=== PATIENT | male | born 1975 | race Caucasian/White ===

== ENCOUNTER 2017-01-10 07:59 | Emergency (ER) | payer BC ==
[2017-01-10] MEDS ORDERED: Bupivacaine 0.5% 10 ML SDV INJECT ONE (08:16)
[2017-01-10] MEDS ORDERED: Lidocaine 1% 20 ML MDV INJECT ONE (08:16)
--- NOTE | 2017-01-10 08:17 | EDM.PDOC ---
ED HPI GENERAL MEDICAL PROBLEM - General Time Seen by Provider: 01/10/17 10:02 Source of Information: Reports: Patient History Limitations: Reports: No limitations - History of Present Illness INITIAL COMMENTS - FREE TEXT/NARRATIVE: History of present illness: [] Patient smashed his left thumb prior to arrival he denies any numbness or tingling or any other injuries. He has a laceration with no active bleeding Review of systems: As per history of present illness and below otherwise all systems reviewed and negative. Past medical history: As per history of present illness and as reviewed below otherwise noncontributory. Surgical history: As per history of present illness and as reviewed below otherwise noncontributory. Social history: No reported history of drug or alcohol abuse. Family history: As per history of present illness and as reviewed below otherwise noncontributory. Physical exam: General: Well developed, well nourished in NAD HEENT: Atraumatic, normocephalic, pupils reactive, negative for conjunctival pallor or scleral icterus, mucous membranes moist, throat clear, neck supple, nontender, trachea midline. Lungs: Clear to auscultation, breath sounds equal bilaterally, chest nontender. Heart: S1S2, regular, negative for clicks, rubs, or JVD. Abdomen: Soft, nondistended, nontender. Negative for masses or hepatosplenomegaly. Negative for costovertebral tenderness. Pelvis: Stable nontender. Genitourinary: Deferred. Rectal: Deferred. Extremities: Laceration left distal,, negative for cords or calf pain. Neurovascular unremarkable. Neuro: Awake, alert, oriented. Cranial nerves II through XII unremarkable. Cerebellum unremarkable. Motor and sensory unremarkable throughout. Exam nonfocal. Diagnostics: [] X-ray showing tuft fracture Therapeutics: [] Laceration was sutured after digital block given Impression: [] Open tuft fracture left thumb Plan: [] Keflex ice Motrin for pain followup with Dr. Irving in plastics clinic Definitive disposition and diagnosis as appropriate pending reevaluation and review of above. Right 1-Thumb Pain Score (Numeric/FACES): 3 - Related Data Allergies Allergy/AdvReac Type Severity Reaction Status Date / Time No Known Allergies Allergy Verified 01/10/17 08:13 Home Meds: Home Meds Cephalexin [Keflex] 500 mg PO Q6HR #28 cap 01/10/17 [Rx] Lisinopril [Prinivil] 20 mg PO DAILY 01/10/17 [History] Past Medical History - Past Health History Medical/Surgical History: Denies Medical/Surgical History Cardiovascular History: Reports: Hypertension - Infectious Disease History Infectious Disease History: Reports: Chicken pox, Measles, Mumps Social & Family History - Family History Family Medical History: Noncontributory - Tobacco Use Smoking Status *Q: Never Smoker - Caffeine Use Caffeine Use: Reports: None - Recreational Drug Use Recreational Drug Use: No ED ROS GENERAL - Review of Systems Review Of Systems: See Below (See history of present illness) ED EXAM, SKIN/RASH Exam: See Below (See history of present illness) ED SKIN PROCEDURES - Laceration/Wound Repair Left Finger Lac/wound length in cm: 1 Appearance: superficial Distal NVT: neuro & vascular intact Anesthetic type: digital Local anesthesia - Lidocaine (Xylocaine): 1% plain Local anesthesia - Bupivicaine (Marcaine): 0.5% plain Local anesthetic volume: 3cc Skin prep: chlorhexidine (hibiciens), saline Closed with: sutures Repaired with: vicryl Drain placement: No Sterile dressing applied: nurse Tetanus status addressed: Yes Complications: No Course - Vital Signs Last Recorded V/S: Last Vital Signs Temp 36.7 C 01/10/17 08:11 Pulse 80 01/10/17 08:11 Resp 18 01/10/17 08:11 BP 141/86 H 01/10/17 08:11 Pulse Ox 96 01/10/17 08:11 - Orders/Labs/Meds Meds: Medications Discontinued Medications Generic Name Dose Route Start Last Admin Trade Name Cornelio PRN Reason Stop Dose Admin Bacitracin 1 dose 01/10/17 10:39 01/10/17 10:49 Bacitracin Oint 1 Gm TOP 01/10/17 10:40 1 dose ONETIME ONE Administration Bupivacaine HCl 10 ml 01/10/17 08:16 01/10/17 08:30 Sensorcaine-Mpf 0.5% INJECT 01/10/17 08:17 8 ml ONETIME ONE Administration Cefazolin Sodium 1 gm 01/10/17 09:55 01/10/17 10:55 Ancef IM 01/10/17 09:56 1 gm ONETIME ONE Administration Lidocaine HCl 20 ml 01/10/17 08:16 01/10/17 08:30 Xylocaine 1% INJECT 01/10/17 08:17 10 ml ONETIME ONE Administration Sterile Water 2.1 ml 01/10/17 10:40 01/10/17 10:55 Sterile Water For Injection INJECT 01/10/17 10:41 2.5 ml NOW STA Administration Departure - Departure Time of Disposition: 09:59 Disposition: Home, Self-Care 01 Condition: good Clinical Impression: Fracture of thumb, left, open Qualifiers: Encounter type: initial encounter Phalanx: distal Fracture alignment: nondisplaced Qualified Code(s): S62.525B - Nondisplaced fracture of distal phalanx of left thumb, initial encounter for open fracture - Discharge Information Prescriptions: Cephalexin [Keflex] 500 mg PO Q6HR #28 cap Instructions: Thumb Fracture Referrals: PCP,None [Primary Care Provider] - Forms: ED Department Discharge Additional Instructions: The following information is given to patients seen in the emergency department who are being discharged to home. This information is to outline your options for follow-up care. We provide all patients seen in our emergency department with a follow-up referral. The need for follow-up, as well as the timing and circumstances, are variable depending upon the specifics of your emergency department visit. If you don't have a primary care physician on staff, we will provide you with a referral. We always advise you to contact your personal physician following an emergency department visit to inform them of the circumstance of the visit and for follow-up with them and/or the need for any referrals to a consulting specialist. The emergency department will also refer you to a specialist when appropriate. This referral assures that you have the opportunity for follow-up care with a specialist. All of these measure are taken in an effort to provide you with optimal care, which includes your follow-up. Under all circumstances we always encourage you to contact your private physician who remains a resource for coordinating your care. When calling for follow-up care, please make the office aware that this follow-up is from your recent emergency room visit. If for any reason you are refused follow-up, please contact the [facility] Emergency Department at and asked to speak to the emergency department charge nurse. Keflex Motrin for pain ice and elevate [facility] Specialty Care - Plastic Surgery Professional Building [address] [place] [address], [address] [place] [address] ED HPI Skin/Rash - General Chief Complaint: Laceration Stated Complaint: INJURY TO THUMB Time Seen by Provider: 01/10/17 08:09 Source: Reports: Patient History Limitations: Reports: No limitations - Related Data Allergies Allergy/AdvReac Type Severity Reaction Status Date / Time No Known Allergies Allergy Verified 01/10/17 08:13 Home Meds: Ambulatory Orders Medication Instructions Recorded Confirmed Cephalexin [Keflex] 500 mg PO Q6HR #28 cap 01/10/17 Lisinopril [Prinivil] 20 mg PO DAILY 01/10/17 01/10/17 Departure - Departure Time of Disposition: 10:58 Disposition: Home, Self-Care 01 Clinical Impression: Fracture of thumb, left, open Qualifiers: Encounter type: initial encounter Phalanx: distal Fracture alignment: nondisplaced Qualified Code(s): S62.525B - Nondisplaced fracture of distal phalanx of left thumb, initial encounter for open fracture Prescriptions: Cephalexin [Keflex] 500 mg PO Q6HR #28 cap Instructions: Thumb Fracture Referrals: PCP,None [Primary Care Provider] - Forms: ED Department Discharge Additional Instructions: The following information is given to patients seen in the emergency department who are being discharged to home. This information is to outline your options for follow-up care. We provide all patients seen in our emergency department with a follow-up referral. The need for follow-up, as well as the timing and circumstances, are variable depending upon the specifics of your emergency department visit. If you don't have a primary care physician on staff, we will provide you with a referral. We always advise you to contact your personal physician following an emergency department visit to inform them of the circumstance of the visit and for follow-up with them and/or the need for any referrals to a consulting specialist. The emergency department will also refer you to a specialist when appropriate. This referral assures that you have the opportunity for follow-up care with a specialist. All of these measure are taken in an effort to provide you with optimal care, which includes your follow-up. Under all circumstances we always encourage you to contact your private physician who remains a resource for coordinating your care. When calling for follow-up care, please make the office aware that this follow-up is from your recent emergency room visit. If for any reason you are refused follow-up, please contact the [facility] Emergency Department at and asked to speak to the emergency department charge nurse. Sylvie Rosado for pain ice and elevate [facility] Specialty Care - Plastic Surgery Professional Building [address] [place] [address], [address] [place] [address]
[2017-01-10] MEDS ORDERED: ceFAZolin 1 GM Vial IM ONE (09:55)
--- NOTE | 2017-01-10 10:08 | CR ---
EXAMINATION: Right thumb HISTORY: crush COMPARISON: None TECHNIQUE: 3 views FINDINGS/IMPRESSION: There is a mildly comminuted minimally displaced fracture through the tuft of t he distal first phalanx. The remaining osseous structures and joint spaces appear intact. Bone muck miner alization is otherwise normal.
[2017-01-10] MEDS ORDERED: Bacitracin Oint 1 GM U/D Packet TOP ONE (10:39)
[2017-01-10] MEDS ORDERED: Water For Injection, Sterile 20 ML SDV INJECT STA (10:40)
[2017-01-10 11:43] VITALS: BP 156/81
== END 2017-01-10 11:10 | disposition home or self-care (01) ==
LOC: MW.ED 07:59
DX: S62.525B Nondisplaced fracture of distal phalanx of left thumb, initial encounter for open fracture (principal); S61.012A Laceration without foreign body of left thumb without damage to nail, initial encounter; W22.8XXA Striking against or struck by other objects, initial encounter
CPT/HCPCS: 12001; 73140; 96372; 99283; J0690

== ENCOUNTER 2021-08-15 00:32 | Emergency (ER) | payer SELFPAY ==
[2021-08-15 00:48] VITALS: BP 140/93; PULSE 104
--- NOTE | 2021-08-15 00:58 | EDM.PDOC ---
ED HPI GENERAL MEDICAL PROBLEM - General Chief Complaint: Respiratory Problem Stated Complaint: POSSIBLE PNEUMONIA Time Seen by Provider: 08/15/21 00:33 Source of Information: Reports: Patient History Limitations: Reports: No Limitations - History of Present Illness INITIAL COMMENTS - FREE TEXT/NARRATIVE: 46-year-old male with history of hypertension and asthma presents with shortness of breath and cough since '. Yesterday he notes right-sided chest tightness that lasted for seconds. He denies fever, chills, nausea, vomiting, abdominal pain, back pain. He currently denies any chest pain. ROS: A 10-point review of systems, other than pertinent positives and negatives as stated per HPI, is otherwise negative Past medical history: No additional pertinent history Past Surgical history: No additional pertinent history Social history: No additional pertinent history Family history: No additional pertinent history PHYSICAL EXAM General: AOx4, GCS = 15, agitated, routinely cussing at nursing staff and physician, rude to staff. No distress HEENT: dry mucous membrane Neck: supple, no meningismus, no Kernig or Brudzinski Cardiac: S1S2 RRR Respiratory: CTAB, no crackles or rales, no wheezing Abdomen: Soft, nontender, no rebound or guarding, nondistended, no pulsatile mass. Back: nontender Musculoskeletal: NVI distally, no deformity Neuro: No focal deficits - Related Data Allergies Allergy/AdvReac Type Severity Reaction Status Date / Time No Known Allergies Allergy Verified 08/15/21 00:43 Home Meds: Home Meds Lisinopril [Prinivil] 20 mg PO DAILY 01/10/17 [History] Benzonatate 100 mg PO BID #10 capsule 08/15/21 [Rx] Past Medical History - Past Health History Medical/Surgical History: Denies Medical/Surgical History Cardiovascular History: Reports: Hypertension - Infectious Disease History Infectious Disease History: Reports: Chicken Pox, Measles, Mumps Social & Family History - Family History Family Medical History: No Pertinent Family History - Tobacco Use Tobacco Use Status *Q: Unknown Ever Used Tobacco - Caffeine Use Caffeine Use: Reports: Coffee - Recreational Drug Use Recreational Drug Use: No ED ROS GENERAL - Review of Systems Review Of Systems: See Below (see dictation) ED EXAM, GENERAL - Physical Exam Exam: See Below (see dictation) #1 Interpretation EKG Interpretation Comments: Heart rate = 96 bpm, normal sinus rhythm, normal QRS interval, TWi on III and AVF. no STEMI. EKG and rhythm strip interpreted by me at 1255 Course - Vital Signs Last Recorded V/S: Last Vital Signs Temp 97.9 F 08/15/21 00:44 Pulse 104 H 08/15/21 00:44 Resp 18 08/15/21 00:44 BP 140/93 H 08/15/21 00:44 Pulse Ox 96 08/15/21 00:44 - Orders/Labs/Meds Orders: Active Orders 24 hr Category Date Time Status B-TYPE NATRIURETIC PEPTIDE,BNP [CHEM] Stat Lab 08/15/21 01:10 Received Labs: Laboratory Tests 08/15/21 08/15/21 08/15/21 Range/Units 00:40 01:10 01:10 WBC 8.19 (4.0-11.0) K/uL RBC 4.29 L (4.50-5.90) M/uL Hgb 12.8 L (13.0-17.0) g/dL Hct 36.8 L (38.0-50.0) % MCV 85.8 (80.0-98.0) fL MCH 29.8 (27.0-32.0) pg MCHC 34.8 (31.0-37.0) g/dL RDW Std Deviation 39.8 (28.0-62.0) fl RDW Coeff of Bill 13 (11.0-15.0) % Plt Count 456 H (150-400) K/uL MPV 10.70 (7.40-12.00) fL Neut % (Auto) 62.5 (48.0-80.0) % Lymph % (Auto) 20.1 (16.0-40.0) % [place] % (Auto) 15.8 H (0.0-15.0) % Eos % (Auto) 1.0 (0.0-7.0) % Baso % (Auto) 0.6 (0.0-1.5) % Neut # (Auto) 5.1 (1.4-5.7) K/uL Lymph # (Auto) 1.7 (0.6-2.4) K/uL [place] # (Auto) 1.3 H (0.0-0.8) K/uL Eos # (Auto) 0.1 (0.0-0.7) K/uL Baso # (Auto) 0.1 (0.0-0.1) K/uL Nucleated RBC % 0.0 /100WBC Nucleated RBCs # 0 K/uL Sodium 138 (136-148) mmol/L Potassium 4.0 (3.5-5.1) mmol/L Chloride 100 (98-107) mmol/L Carbon Dioxide 30.0 (21.0-32.0) mmol/L BUN 9 (7.0-18.0) mg/dL Creatinine 0.9 (0.8-1.3) mg/dL Est Cr Clr Drug Dosing 114.67 mL/min Estimated GFR (MDRD) > 60.0 ml/min Glucose 130 H (74-106) mg/dL Calcium 8.4 L (8.5-10.1) mg/dL Total Bilirubin 0.5 (0.2-1.0) mg/dL AST 37 (15-37) IU/L ALT 85 H (14-63) IU/L Alkaline Phosphatase 58 (46-116) U/L Troponin I < 0.050 (0.000-0.056) ng/mL Total Protein 7.3 (6.4-8.2) g/dL Albumin 2.7 L (3.4-5.0) g/dL Globulin 4.6 H (2.6-4.0) g/dL Albumin/Globulin Ratio 0.6 L (0.9-1.6) Influenza Type A RNA NEGATIVE (NEGATIVE) Influenza Type B RNA NEGATIVE (NEGATIVE) SARS-CoV-2 RNA (IMELDA) POSITIVE H (NEGATIVE) - Re-Assessments/Exams Free Text/Narrative Re-Assessment/Exam: 08/15/21 01:47 He is currently stable for discharge. I performed a repeat exam and did not appreciate new abnormal findings. Patient exhibits normal vital signs and has a normal gait on road test. I advised the patient to return to the ER for reevaluation if symptoms worsened, including fever, worsening pain, or any other worrisome symptoms. I instructed the patient to follow up with their PCP within 2-3 days. MEDICAL DECISION MAKING: This patient was evaluated during the COVID-19 pandemic where resources and capacity might be affected. I reviewed the patients past medical records, lab and radiographic findings. I discussed the case with the patient. My differential diagnosis included: Covid, ACS, pneumonia. This patient was evaluated for the symptoms described in the history of present illness. He tested positive for Covid. He does not require supplemental oxygen. They were evaluated in the context of the global COVID-19 pandemic, which necessitated consideration that the patient might be at risk for infection with the SARS-CoV-2 virus that causes COVID-19. Institutional protocols and algorithms that pertain to the evaluation of patients at risk for COVID-19 are in a state of rapid change based on information released by regulatory bodies including the CDC and federal and state organizations. These policies and algorithms were followed during the patient's care. I wore full PPE, N95, face shield, gown and gloves throughout my evaluation and care of this patient. I recommended home isolation. given home isolation instructions. The patient is well appearing, not in respiratory distress, not hypoxic, no tachyneia, no retractions. I instructed patient to return immediately for worsening symptoms, sob, chest pain, lightheadedness or other concerns. Patient voiced understanding and questions answered. Given the EKG and clinical history, I do not suspect pericarditis. There is no evidence of pneumothorax or consolidation on CXR, I do not suspect bacterial infection needing antibiotics.. Aortic dissection was considered, however the presenting symptoms were uncharacteristic of aortic dissection. Chest X-ray shows no evidence of mediastinal widening and there are strong, equal and symmetric pulses. Given the current presentation, I do not suspect aortic dissection. He was tested positive for Covid. The patients history, chest X- ray, and exam do not suggest pulmonary edema/congestive heart failure. Pulmonary embolism was considered but felt unlikely. Acute coronary syndrome was considered but there are negative biomarkers, no acute ischemic EKG changes, and the patient has a low HEART score. Based on this, I feel that there is low risk for short-term major adverse cardiac event. I have discussed this with the p atient and reviewed options for inpatient and outpatient management. The patient verbalizes an excellent understanding of the above including presence of small risk of short-term major adverse cardiac event even in the setting of low HEART score, negative cardiac biomarker, and compendium of elements of this presentation. The patient wishes to pursue further workup on as an outpatient. Departure - Departure Time of Disposition: 01:48 Disposition: Home, Self-Care 01 Condition: Good Clinical Impression: COVID-19 - Discharge Information *PRESCRIPTION DRUG MONITORING PROGRAM REVIEWED*: Not Applicable *COPY OF PRESCRIPTION DRUG MONITORING REPORT IN PATIENT PARVIN: Not Applicable Prescriptions: Benzonatate 100 mg PO BID #10 capsule Instructions: COVID-19 Vaccine Information, What You Should Know About COVID-19 to Protect Yourself and Others - CDC, How to Wear and Take Off Your Mask - [facility] (12/03/2020), COVID-19 Frequently Asked Questions, 10 Things You Can Do to Manage Your COVID-19 Symptoms at Home - CDC (03/19/2021) Referrals: PCP,None [Primary Care Provider] - Forms: ED Department Discharge Additional Instructions: The need for follow-up, as well as the timing and circumstances, are variable depending upon the specifics of your emergency department visit. If you don't have a primary care physician on staff, we will provide you with a referral. We always advise you to contact your personal physician following an emergency department visit to inform them of the circumstance of the visit and for follow-up with them and/or the need for any referrals to a consulting specialist. The emergency department will also refer you to a specialist when appropriate. This referral assures that you have the opportunity for follow-up care with a specialist. All of these measure are taken in an effort to provide you with optimal care, which includes your follow-up. Under all circumstances we always encourage you to contact your private physician who remains a resource for coordinating your care. When calling for follow-up care, please make the office aware that this follow-up is from your recent emergency room visit. If for any reason you are refused follow-up, please contact the [facility] Emergency Department at and asked to speak to the emergency department charge nurse. If you do not have a primary care doctor, please follow up with the clinics below within 3-5 days. [facility] - Primary [facility] [address] [place] [id number] [facility] [address] [place] [id number] Sepsis Event Note (ED) - Evaluation Sepsis Screening Result: No Definite Risk - Focused Exam Vital Signs: Vital Signs Temp Pulse Resp BP Pulse Ox 08/15/21 00:44 97.9 F 104 H 18 140/93 H 96 - My Orders Last 24 Hours: My Active Orders 08/15/21 01:10 B-TYPE NATRIURETIC PEPTIDE,BNP [CHEM] Stat - Assessment/Plan Last 24 Hours: My Active Orders 08/15/21 01:10 B-TYPE NATRIURETIC PEPTIDE,BNP [CHEM] Stat
[2021-08-15 01:21] LABS: CORONAVIRUS COVID-19 NAA POSITIVE (NEGATIVE); INFLUENZA A NAA NEGATIVE (NEGATIVE); INFLUENZA B NAA NEGATIVE (NEGATIVE)
--- NOTE | 2021-08-15 01:33 | CR ---
Indication: Cough and chest pain Technique: Chest 2 views Comparison: Chest x-ray 07/10/2012 Findings/Impression: Cardiovascular and mediastinum: Heart size and vasculature are normal in caliber and appearance. Mediastinum is within normal limits. Lungs and pleural spaces: No pleural effusion or pneumothorax. Extensive bilateral opacities throughout both lungs suspicious for pneumonia. Bones and soft tissues: No significant findings. Dictated by Everton Garcia MD @ 08/15/2021 1:32:27 AM (Electronically Signed)
[2021-08-15 01:39] LABS: BLOOD UREA NITROGEN,BUN 9 mg/dL (7.0-18.0); CHLORIDE,CL 100 mmol/L (98-107); GLUCOSE RANDOM 130 mg/dL (74-106); SODIUM,NA 138 mmol/L (136-148)
== END 2021-08-15 02:21 | disposition home or self-care (01) ==
LOC: MW.ED 00:32
DX: U07.1 COVID-19 (principal); I10 Essential (primary) hypertension; Z79.899 Other long term (current) drug therapy
CPT/HCPCS: 0240U; 36415; 71046; 80053; 83880; 84484; 85025; 93005; 99285